=== PATIENT | male | born 1975 | race Native Hawaiian/Other Pacific Islander ===

== ENCOUNTER 2022-02-02 18:28 | Emergency (ER) | payer BC ==
[~2022-02-02] VITALS: Ht 180.3 cm; Wt 94.8 kg
[2022-02-02 18:45] VITALS: BP 143/68; TEMP 98.3
== END 2022-02-02 23:23 | disposition home or self-care (01) ==
LOC: ED 18:28
DX: S10.83XA Contusion of other specified part of neck, initial encounter (principal); S20.212A Contusion of left front wall of thorax, initial encounter; V59.9XXA Occupant (driver) (passenger) of pick-up truck or van injured in unspecified traffic accident, initial encounter; Y92.89 Other specified places as the place of occurrence of the external cause
CPT/HCPCS: 96372; 99283; J1885; J2360

== ENCOUNTER 2022-07-26 22:36 | Emergency (ER) | payer OTHER ==
[~2022-07-26] VITALS: Ht 180.3 cm; Wt 88.5 kg
[2022-07-26 22:36] VITALS: TEMP 97.2
[2022-07-27 01:06] VITALS: BP 124/74
== END 2022-07-27 01:06 | disposition home or self-care (01) ==
LOC: ED 22:36
PROC: 0HQFXZZ Repair Right Hand Skin, External Approach (ICD-10-PCS; principal; 2022-07-26)
DX: S61.421A Laceration with foreign body of right hand, initial encounter (principal); W18.39XA Other fall on same level, initial encounter; Y92.89 Other specified places as the place of occurrence of the external cause
CPT/HCPCS: 99283; J7040

== ENCOUNTER 2022-08-14 18:02 | Emergency (ER) | payer OTHER ==
[~2022-08-14] VITALS: Ht 180.3 cm; Wt 88.5 kg
== END 2022-08-14 18:25 | disposition home or self-care (01) ==
LOC: ED 18:02
DX: Z48.02 Encounter for removal of sutures (principal)